=== PATIENT | male | born 1955 | race Caucasian/White ===

== ENCOUNTER 2019-05-11 16:24 | Emergency (ER) | payer SELFPAY ==
[2019-05-11] MEDS ORDERED: TRANEXAMIC ACID 1,000 MG/10 ML VIAL IV ONE (19:00)
--- NOTE | 2019-05-11 20:06 | EDPHYS ---
Physician Documentation [facility] Name: Raad Plascencia Sr Age: 63 yrs Sex: Male : 1955 Arrival Date: 05/11/2019 Time: 16:25 Bed 20 Private MD: ED Physician Brayden Edgar HPI: 05/11 16:45 This 63 yrs old Male presents to ER via Ambulatory with complaints of ps1 Laceration To Arm. 16:45 patient was accidentally hit with a 2x4 piece of wood. Patient is on blood thinner for ps1 CAD. Still bleeding 6 hours MARKET RESEARCHER. Pain is rated as mild. Concerned about bleeding. . Historical: - Allergies: 16:32 No Known Allergies; la1 - PMHx: 16:32 Hypertension; la1 - Immunization history:: Adult Immunizations up to date. - Social history:: Smoking status: Patient uses tobacco products, smokes one-half pack cigarettes per day. - Ebola Screening: : No symptoms or risks identified at this time. ROS: 16:45 Constitutional: Negative for fever, chills, and weight loss, Eyes: Negative for injury, ps1 pain, redness, and discharge, Cardiovascular: Negative for chest pain, palpitations, and edema, Respiratory: Negative for shortness of breath, cough, wheezing, and pleuritic chest pain, Abdomen/GI: Negative for abdominal pain, nausea, vomiting, diarrhea, and constipation, MS/Extremity: Negative for injury and deformity. 16:45 Skin: Positive for skin tear left arm. Exam: 16:48 Constitutional: This is a well developed, well nourished patient who is awake, alert, ps1 and in no acute distress. Head/Face: Normocephalic, atraumatic. Chest/axilla: Normal chest wall appearance and motion. Nontender with no deformity. No lesions are appreciated. Cardiovascular: Regular rate and rhythm. No gallops, murmurs, or rubs. Normal PMI, no JVD. No pulse deficits. Respiratory: Lungs have equal breath sounds bilaterally, clear to auscultation and percussion. No rales, rhonchi or wheezes noted. No increased work of breathing, no retractions or nasal flaring. Abdomen/GI: Soft, non-tender, with normal bowel sounds. No distension or tympany. No guarding or rebound. No evidence of tenderness throughout. 16:48 Skin: skin tear 4 cm in diameter on left arm volar surface. . Vital Signs: 16:32 BP 109 / 65; Pulse 105; Resp 12; Temp 97.3; Pulse Ox 100% on R/A; Weight 58.97 kg; la1 Height 5 ft. 5 in. (165.10 cm); 18:35 BP 104 / 62; Pulse 84; Resp 16; Pulse Ox 97% ; bp 20:00 BP 104 / 62; Pulse 78; Resp 18; Pulse Ox 98% ; wh 16:32 Body Mass Index 21.63 (58.97 kg, 165.10 cm) la1 Laceration: 20:05 Wound Repair of 5cm ( 2.0in ) subcutaneous laceration to left forearm. Skin/tissue flap morgan noted.. superficial, skin tear. Distal neuro/vascular/tendon intact. Anesthesia: none with none. Wound prep: Simple cleansing by me. Skin closed with surgicel wound dressing using pressure, light. Dressed with pressure dressing, non-adherent dressing. Patient tolerated well. MDM: 16:38 Patient medically screened. ps1 16:49 Data reviewed: vital signs, nurses notes. ED course: wet skin as it is contracted from ps1 time of event. Will use as a natural border. Will place Surgicel on wound to stop bleeding. . 05/11 19:58 Order name: Wound dressing: surgicel, gauze, erica; Complete Time: 20:03 morgan Administered Medications: 20:13 Drug: Tetanus-Diphtheria Toxoid Adult 0.5 ml {Cosmetic Account Coordinator: [employer]. Exp: 11/20/2020. Lot #: [id number]. } Route: IM; Site: right deltoid; 20:20 Follow up: Response: No adverse reaction Disposition: 05/11/19 20:04 Discharged to Home. Impression: Laceration without foreign body of left forearm - skin tear. - Condition is Stable. - Discharge Instructions: Laceration Care, Adult, Skin Tear Care, Laceration Care, Adult, [id number], Skin Tear Care, [id number]. - Medication Reconciliation Form, Thank You Letter, Antibiotic Education, Prescription Opioid Use form. - Follow up: Evgeny Sawyer MD; When: Tomorrow; Reason: Recheck today's complaints, Continuance of care, Re-evaluation by your physician. - Problem is new. - Symptoms have improved. Signatures: Brayden Edgar MD MD cha Attema, Lee, RN RN la1 Lori Vincent Phillip, MD MD ps1 Corrections: (The following items were deleted from the chart) 20:20 20:04 05/11/2019 20:04 Discharged to Home. Impression: Laceration without foreign body wh of left forearm - skin tear. Condition is Stable. Forms are Medication Reconciliation Form, Thank You Letter, Antibiotic Education, Prescription Opioid Use. Follow up: Evgeny Sawyer; When: Tomorrow; Reason: Recheck today's complaints, Continuance of care, Re-evaluation by your physician. Problem is new. Symptoms have improved. morgan
--- NOTE | 2019-05-11 20:06 | ER ---
Nurse's Notes [facility] Name: Raad Plascencia Sr Age: 63 yrs Sex: Male : 1955 Arrival Date: 05/11/2019 Time: 16:25 Bed 20 Private MD: Diagnosis: Laceration without foreign body of left forearm-skin tear Presentation: 05/11 16:31 Presenting complaint: Patient states: A 2x4 fell and hit my left forearm about 6 hours la1 ago and it wont stop bleeding. Transition of care: patient was not received from another setting of care. Complicating Factors: There are no complicating factors for this patient. Onset of symptoms was May 11, 2019. Risk Assessment: Do you want to hurt yourself or someone else? Patient reports no desire to harm self or others. Initial Sepsis Screen: Does the patient meet any 2 criteria? No. Patient's initial sepsis screen is negative. Does the patient have a suspected source of infection? No. Patient's initial sepsis screen is negative. Care prior to arrival: None. 16:31 Method Of Arrival: Ambulatory la1 16:31 Acuity: PABLO 4 la1 Triage Assessment: 16:35 General: Appears in no apparent distress. comfortable, Behavior is calm, cooperative, bp appropriate for age. Pain: Complains of pain in left forearm. EENT: No deficits noted. Neuro: No deficits noted. Cardiovascular: No deficits noted. Respiratory: No deficits noted. GI: No signs and/or symptoms were reported involving the gastrointestinal system. : No signs and/or symptoms were reported regarding the genitourinary system. Derm: No deficits noted. Musculoskeletal: No deficits noted. Injury Description: Laceration sustained to left forearm is IRREGULAR AVULSION/LACERATION. Historical: - Allergies: 16:32 No Known Allergies; la1 - PMHx: 16:32 Hypertension; la1 - Immunization history:: Adult Immunizations up to date. - Social history:: Smoking status: Patient uses tobacco products, smokes one-half pack cigarettes per day. - Ebola Screening: : No symptoms or risks identified at this time. Screenin:53 Abuse screen: Denies threats or abuse. Denies injuries from another. Nutritional bp screening: No deficits noted. Tuberculosis screening: No symptoms or risk factors identified. Fall Risk None identified. Assessment: 16:32 General: SEE TRIAGE NOTE. Injury Description: Laceration sustained to left forearm. bp 18:10 Reassessment: TXA REQUESTED FROM PHARMACY FOR BLEEDING CONTROL. bp 18:33 Reassessment: TXA DRESSING PLACED TO CONTROL BLEEDING. bp 19:15 Reassessment: Patient appears in no apparent distress at this time. Patient and/or family updated on plan of care and expected duration. Pain level reassessed. Patient is alert, oriented x 3, equal unlabored respirations, skin warm/dry/pink. Pt still with some bleeding, Notified MD. 19:56 Reassessment: Dr Edgar at bedside doing wound dressing. bp 20:15 Reassessment: Patient appears in no apparent distress at this time. No changes from previously documented assessment. Patient and/or family updated on plan of care and expected duration. Pain level reassessed. Patient is alert, oriented x 3, equal unlabored respirations, skin warm/dry/pink. Bleeding stopped with pressure dressing applied. Vital Signs: 16:32 BP 109 / 65; Pulse 105; Resp 12; Temp 97.3; Pulse Ox 100% on R/A; Weight 58.97 kg; la1 Height 5 ft. 5 in. (165.10 cm); 18:35 BP 104 / 62; Pulse 84; Resp 16; Pulse Ox 97% ; bp 20:00 BP 104 / 62; Pulse 78; Resp 18; Pulse Ox 98% ; wh 16:32 Body Mass Index 21.63 (58.97 kg, 165.10 cm) la1 ED Course: 16:25 Patient arrived in ED. as 16:31 Alek Zamora MD is Attending Physician. ps1 16:32 Triage completed. la1 16:32 Arm band placed on right wrist. la1 16:39 Edgard Gaitan, RN is Primary Nurse. bp 16:53 Patient has correct armband on for positive identification. Bed in low position. Call bp light in reach. Side rails up X2. Adult w/ patient. 18:53 Attending Physician role handed off by Alek Zamora MD morgan 18:53 Brayden Edgar MD is Attending Physician. morgan 19:58 Evgeny Sawyer MD is Referral Physician. morgan 20:16 No provider procedures requiring assistance completed. Patient did not have IV access during this emergency room visit. Administered Medications: 20:13 Drug: Tetanus-Diphtheria Toxoid Adult 0.5 ml {Material Planning Analyst: [employer]. Exp: 11/20/2020. Lot #: [id number]. } Route: IM; Site: right deltoid; 20:20 Follow up: Response: No adverse reaction Outcome: 20:04 Discharge ordered by . morgan 20:16 Discharged to home ambulatory, with family. 20:16 Condition: stable 20:16 Discharge instructions given to patient, family, Instructed on discharge instructions, follow up and referral plans. wound care, Demonstrated understanding of instructions, follow-up care, wound care. 20:20 Patient left the ED. Signatures: Brayden Edgar MD MD cha Martinez, Amelia as Attema, Lee RN RN la1 Lori Vincent Brian, RN RN bp Alek Zamora MD MD ps1
[2019-05-11] MEDS ORDERED: TETANUS & DIPHTHERIA TOX,ADULT 0.5 ML VIAL ONE (20:09)
[2019-05-11 21:39] VITALS: BP 104/62
[2019-05-11 21:41] VITALS: TEMP 97.3
[2019-05-11 21:42] VITALS: O2SAT 98
== END 2019-05-11 20:20 | disposition home or self-care (01) ==
LOC: ER 16:24
PROC: 0JQH0ZZ Repair Left Lower Arm Subcutaneous Tissue and Fascia, Open Approach (ICD-10-PCS; principal; 2019-05-11)
DX: S51.812A Laceration without foreign body of left forearm, initial encounter (principal); W45.8XXA Other foreign body or object entering through skin, initial encounter; Y93.89 Activity, other specified; Y92.9 Unspecified place or not applicable; I10 Essential (primary) hypertension; F17.210 Nicotine dependence, cigarettes, uncomplicated
CPT/HCPCS: 90471; 90714; 99283

== ENCOUNTER 2020-07-31 16:36 | Emergency (ER) | payer OTHER, SELFPAY ==
--- NOTE | 2020-07-31 20:08 | ER ---
Nurse's Notes [facility] Name: Raad Plascencia Sr Age: 64 yrs Sex: Male : 1955 Arrival Date: 07/31/2020 Time: 16:37 Bed 23 Private MD: Diagnosis: Epistaxis-Resolved Presentation: 07/31 16:57 Chief complaint: Patient states: Nasal congestion, slight cough for over 2 weeks. ll1 Started blowing his nose 4 hours [employer]IC and saw bright red blood in mucous. No fever. + [place]. Coronavirus screen: Client denies travel out of the [place] in the last 14 days. congestion, cough unrelated to allergies, Client presents with at least one sign or symptom that may indicate coronavirus-19. Standard/surgical mask placed on the client. Ebola Screen: Patient denies travel to an Ebola-affected area in the 21 days before illness onset. Initial Sepsis Screen: Does the patient meet any 2 criteria? No. Patient's initial sepsis screen is negative. Does the patient have a suspected source of infection? Yes: S/S of meningitis or endocarditis. Risk Assessment: Do you want to hurt yourself or someone else? Patient reports no desire to harm self or others. Onset of symptoms was July 18, 2020. 16:57 Method Of Arrival: Ambulatory [facility] 16:57 Acuity: PABLO 3 ll1 Historical: - Allergies: 17:01 No Known Allergies; ll1 - PMHx: 17:01 Hypertension; High Cholesterol; ll1 - PSHx: 17:01 nail to head; Heart stents; ll1 - Immunization history:: Flu vaccine is up to date. - Social history:: Smoking status: Patient reports the use of cigarette tobacco products, smokes one-half pack cigarettes per day. Screenin:12 Abuse screen: Denies threats or abuse. Denies injuries from another. Nutritional mg2 screening: No deficits noted. Tuberculosis screening: No symptoms or risk factors identified. Fall Risk None identified. Assessment: 19:12 General: Appears in no apparent distress. comfortable, Behavior is calm, cooperative. mg2 Pain: Denies pain. Neuro: Level of Consciousness is awake, alert, obeys commands, Oriented to person, place, time, situation. Cardiovascular: Capillary refill < 3 seconds Patient's skin is warm and dry. Respiratory: Airway is patent Respiratory effort is even, unlabored, Respiratory pattern is regular, symmetrical. GI: No signs and/or symptoms were reported involving the gastrointestinal system. : No signs and/or symptoms were reported regarding the genitourinary system. EENT: Reports nasal bleeding , none at present. Derm: Skin is intact, is healthy with good turgor. Musculoskeletal: Circulation, motion, and sensation intact. Capillary refill < 3 seconds. 20:12 Reassessment: no bleeding noted. mg2 Vital Signs: 16:57 BP 155 / 73; Pulse 68; Resp 17; Temp 99.0; Pulse Ox 98% ; Weight 60.33 kg; Height 5 ft. ll1 5 in. (165.10 cm); Pain 4/10; 19:27 BP 135 / 67; Pulse 77; Resp 18; Pulse Ox 99% on R/A; mg2 16:57 Body Mass Index 22.13 (60.33 kg, 165.10 cm) ll1 ED Course: 16:37 Patient arrived in ED. ds1 16:59 Triage completed. ll1 17:01 Arm band placed on. ll1 19:03 George Melendez, RN is Primary Nurse. mg2 19:06 Jesus Manuel Arreguin MD is Attending Physician. mh7 19:12 Patient has correct armband on for positive identification. mg2 19:13 No provider procedures requiring assistance completed. mg2 20:07 Mariah Arceo MD is Referral Physician. 7 20:13 Patient did not have IV access during this emergency room visit. mg2 Administered Medications: No medications were administered Outcome: 20:08 Discharge ordered by . mh7 20:13 Discharged to home ambulatory. mg2 20:13 Condition: good 20:13 Discharge instructions given to patient, Instructed on discharge instructions, follow up and referral plans. medication usage, Demonstrated understanding of instructions, follow-up care, medications, Prescriptions given X 1. 20:13 Patient left the ED. mg2 Signatures: Johanny Moran ds1 George Melendez RN RN mg2 Rodney Kwon RN RN [facility] Jesus Manuel Arreguin MD MD [facility]
--- NOTE | 2020-07-31 20:08 | EDPHYS ---
Physician Documentation [facility] Name: Raad Plascencia Sr Age: 64 yrs Sex: Male : 1955 Arrival Date: 07/31/2020 Time: 16:37 Bed 23 Private MD: ED Physician Jesus Manuel Arreguin HPI: 07/31 20:01 This 64 yrs old Male presents to ER via Ambulatory with complaints of Nose mh7 Bleed. 20:01 The patient presents with a nose bleed, that is apparently anterior, from the right mh7 nare, occurred after blowing nose, that is intermittent small amount with clots, stopped /dried blood noted. causative factors include: unknown, and the bleeding resolved prior to arrival. Onset: The symptoms/episode began/occurred today. Modifying factors: The symptoms are alleviated by nothing. the symptoms are aggravated by blowing nose. 20:02 Associated signs and symptoms: The patient has no apparent associated signs or mh7 symptoms, Loss of consciousness: the patient experienced no loss of consciousness, Pertinent positives: cough, Pertinent negatives: blurred vision, chest pain, ear ache, fever, lightheadedness, nausea, rhinorrhea, shortness of breath, sore throat, vertigo. Severity of symptoms: At their worst the symptoms were mild today, in the emergency department the symptoms have resolved and did so just prior to arrival. Historical: - Allergies: 17:01 No Known Allergies; ll1 - PMHx: 17:01 Hypertension; High Cholesterol; ll1 - PSHx: 17:01 nail to head; Heart stents; ll1 - Immunization history:: Flu vaccine is up to date. - Social history:: Smoking status: Patient reports the use of cigarette tobacco products, smokes one-half pack cigarettes per day. ROS: 20:02 Constitutional: Negative for fever, chills, and weight loss, Eyes: Negative for injury, mh7 pain, redness, and discharge, Neck: Negative for injury, pain, and swelling, Cardiovascular: Negative for chest pain, palpitations, and edema. 20:02 Abdomen/GI: Negative for abdominal pain, nausea, vomiting, diarrhea, and constipation, Back: Negative for injury and pain, : Negative for injury, bleeding, discharge, and swelling, MS/Extremity: Negative for injury and deformity, Skin: Negative for injury, rash, and discoloration, Neuro: Negative for headache, weakness, numbness, tingling, and seizure, Psych: Negative for depression, anxiety, suicide ideation, homicidal ideation, and hallucinations, Allergy/Immunology: Negative for hives, rash, and allergies, Endocrine: Negative for neck swelling, polydipsia, polyuria, polyphagia, and marked weight changes, Hematologic/Lymphatic: Negative for swollen nodes, abnormal bleeding, and unusual bruising. 20:02 Respiratory: Negative for dyspnea on exertion, hemoptysis, orthopnea, pleurisy, shortness of breath, sputum production, wheezing. Exam: 20:02 Constitutional: This is a well developed, well nourished patient who is awake, alert, mh7 and in no acute distress. Head/Face: Normocephalic, atraumatic. Eyes: Pupils equal round and reactive to light, extra-ocular motions intact. Lids and lashes normal. Conjunctiva and sclera are non-icteric and not injected. Cornea within normal limits. Periorbital areas with no swelling, redness, or edema. 20:02 Neck: Trachea midline, no thyromegaly or masses palpated, and no cervical lymphadenopathy. Supple, full range of motion without nuchal rigidity, or vertebral point tenderness. No Meningismus. Chest/axilla: Normal chest wall appearance and motion. Nontender with no deformity. No lesions are appreciated. Cardiovascular: Regular rate and rhythm with a normal S1 and S2. No gallops, murmurs, or rubs. Normal PMI, no JVD. No pulse deficits. Respiratory: Lungs have equal breath sounds bilaterally, clear to auscultation and percussion. No rales, rhonchi or wheezes noted. No increased work of breathing, no retractions or nasal flaring. Abdomen/GI: Soft, non-tender, with normal bowel sounds. No distension or tympany. No guarding or rebound. No evidence of tenderness throughout. Back: No spinal tenderness. No costovertebral tenderness. Full range of motion. Skin: Warm, dry with normal turgor. Normal color with no rashes, no lesions, and no evidence of cellulitis. MS/ Extremity: Pulses equal, no cyanosis. Neurovascular intact. Full, normal range of motion. Neuro: Awake and alert, GCS 15, oriented to person, place, time, and situation. Cranial nerves II-XII grossly intact. Motor strength 5/5 in all extremities. Sensory grossly intact. Cerebellar exam normal. Normal gait. Psych: Awake, alert, with orientation to person, place and time. Behavior, mood, and affect are within normal limits. 20:02 ENT: External ear(s): are unremarkable, Ear canal(s): are normal, TM's: are normal, Nose: External nose: no obvious acute abnormality, Nasal septum: no septal hematoma appreciated, Nasal mucosa: Dried blood. Turbinates: are normal, abrasion, is not appreciated, bleeding, is not appreciated, clotted blood, is not appreciated, nasal drainage, is not appreciated, a foreign body, is not appreciated, laceration, is not appreciated, cerebral spinal fluid rhinorrhea, is not appreciated, Examination of the other nostril shows no obvious abnormality, Mouth: is normal, Posterior pharynx: is normal, airway is patent, Dental exam: normal, Voice: is normal, Breath odor: is normal. Vital Signs: 16:57 BP 155 / 73; Pulse 68; Resp 17; Temp 99.0; Pulse Ox 98% ; Weight 60.33 kg; Height 5 ft. ll1 5 in. (165.10 cm); Pain 4/10; 19:27 BP 135 / 67; Pulse 77; Resp 18; Pulse Ox 99% on R/A; mg2 16:57 Body Mass Index 22.13 (60.33 kg, 165.10 cm) ll1 MDM: 20:02 Differential diagnosis: foreign body - resolved, foreign body - unresolved, spontaneous mh7 epistaxis. Data reviewed: vital signs, nurses notes. Data interpreted: Pulse oximetry: on room air is 99 %. Interpretation: normal. Counseling: I had a detailed discussion with the patient and/or guardian regarding: the historical points, exam findings, and any diagnostic results supporting the discharge/admit diagnosis, the need for outpatient follow up, to return to the emergency department if symptoms worsen or persist or if there are any questions or concerns that arise at home. Response to treatment: the patient's symptoms have resolved after treatment, the patient's blood pressure is in an acceptable range, mental status has returned to baseline, the patient no longer shows bradycardia, the patient is not short of breath, the patient is not tachycardic, the patient's pain is gone, the patient's temperature has normalized. 20:08 Patient medically screened. 7 Administered Medications: No medications were administered Disposition: 07/31/20 20:08 Discharged to Home. Impression: Epistaxis - Resolved. - Condition is Stable. - Discharge Instructions: Nosebleed, [id number]. - Prescriptions for Afrin (oxymetazoline) 0.05 % Nasal Aerosol, [place] - spray 2 spray by INTRANASAL route 2 times per day; 1 Container. - Medication Reconciliation Form, Thank You Letter, Antibiotic Education, Prescription Opioid Use form. - Follow up: Private Physician; When: 1 - 2 days; Reason: Worsening of condition, Recheck today's complaints, Continuance of care, Re-evaluation by your physician. Follow up: Mariah Arceo MD; When: 1 - 2 days; Reason: If symptoms return, Worsening of condition, Recheck today's complaints. - Problem is new. - Symptoms have improved. Signatures: George Melendez RN RN mg2 Rodney Kwon RN RN ll1 Jesus Manuel Arreguin MD MD mh7 Corrections: (The following items were deleted from the chart) 20:13 20:08 07/31/2020 20:08 Discharged to Home. Impression: Epistaxis - Resolved. Condition mg2 is Stable. Forms are Medication Reconciliation Form, Thank You Letter, Antibiotic Education, Prescription Opioid Use. Follow up: Private Physician; When: 1 - 2 days; Reason: Worsening of condition, Recheck today's complaints, Continuance of care, Re-evaluation by your physician. Follow up: Mariah Arceo; When: 1 - 2 days; Reason: If symptoms return, Worsening of condition, Recheck today's complaints. Problem is new. Symptoms have improved. mh7
[2020-07-31 20:17] VITALS: TEMP 99
[2020-07-31 20:18] VITALS: BP 135/67; O2SAT 99
[2020-07-31] MEDS ORDERED: OXYMETAZOLINE HCL 0.05% 15ML NAS ONE (20:19)
== END 2020-07-31 20:13 | disposition home or self-care (01) ==
LOC: ER 16:36
DX: R04.0 Epistaxis (principal); I10 Essential (primary) hypertension; F17.210 Nicotine dependence, cigarettes, uncomplicated; Z95.818 Presence of other cardiac implants and grafts
CPT/HCPCS: 99282